=== PATIENT | female | born 1955 | race Caucasian/White ===

== ENCOUNTER 2023-12-02 09:38 | Outpatient (RCR) | payer OTHER, SELFPAY ==
[2023-12-02 10:07] VITALS: BP 120/80
[2023-12-02] MEDS: CORTROSYN 1 MG IV (10:47)
[2023-12-02 11:48] LABS: ACTH Stim Cortisol 0 Min 12.4 ug/dl
[2023-12-02 13:39] LABS: ACTH Stim Cortisol 30 Min 18.4 ug/dl
[2023-12-02 14:03] LABS: ACTH Stim Cortisol 60 Min 15.9 ug/dl
== END 2023-12-18 23:59 | disposition home or self-care (01) ==
LOC: OID 09:38
PROVIDERS: ATTENDING PHYSICIAN Nurse Practitioner Family; FAMILY PHYSICIAN Family Medicine Adult Medicine; OTHER PHYSICIAN Internal Medicine Rheumatology
DX: G62.9 Polyneuropathy, unspecified (principal); E06.3 Autoimmune thyroiditis (principal); M35.00 Sjogren syndrome, unspecified; R79.89 Other specified abnormal findings of blood chemistry; R63.5 Abnormal weight gain
CPT/HCPCS: 82533; 96374

== ENCOUNTER 2024-01-08 09:49 | Outpatient (RCR) | payer OTHER, SELFPAY ==
[2024-01-02] VITALS (7 sets, daily range): BP systolic 97–120; BP diastolic 61–80
[2024-01-02] MEDS: GAMMAGARD 50 IV (10:31)
[2024-01-02] MEDS: GAMMAGARD 200 IV (11:25)
[2024-01-03] VITALS (7 sets, daily range): BP systolic 88–138; BP diastolic 49–88
[2024-01-03] MEDS: GAMMAGARD 50 IV (08:45)
[2024-01-03] MEDS: GAMMAGARD 200 IV (09:30)
[2024-01-07] VITALS (7 sets, daily range): BP systolic 106–165; BP diastolic 67–82; BMI 29.6
[2024-01-07] MEDS: GAMMAGARD 50 IV (10:43)
[2024-01-07] MEDS: GAMMAGARD 200 IV (11:34)
[2024-01-08] VITALS (8 sets, daily range): BP systolic 96–118; BP diastolic 49–93
[2024-01-08] MEDS: GAMMAGARD 50 IV (10:29)
[2024-01-08] MEDS: GAMMAGARD 200 IV (11:13)
== END 2024-01-16 23:59 | disposition home or self-care (01) ==
LOC: OID 09:49
PROVIDERS: ATTENDING PHYSICIAN Internal Medicine Rheumatology; FAMILY PHYSICIAN Family Medicine Adult Medicine
DX: G62.9 Polyneuropathy, unspecified (principal); M35.00 Sjogren syndrome, unspecified
CPT/HCPCS: 96365; 96366; J1569

== ENCOUNTER 2024-02-07 10:35 | Outpatient (RCR) | payer OTHER, SELFPAY ==
[2024-02-04 11:05] VITALS: BP 98/71
[2024-02-04] MEDS: GAMMAGARD 50 IV (11:05)
[2024-02-04 11:30] VITALS: BP 104/60
[2024-02-04] MEDS: GAMMAGARD 200 IV (11:53)
[2024-02-04 12:00] VITALS: BP 104/66
[2024-02-04 12:30] VITALS: BP 104/70
[2024-02-04 13:00] VITALS: BP 98/71
[2024-02-05] VITALS (7 sets, daily range): BP systolic 105–121; BP diastolic 56–71
[2024-02-05] MEDS: GAMMAGARD 50 IV (10:56)
[2024-02-05] MEDS: GAMMAGARD 200 IV (11:41)
[2024-02-06] VITALS (7 sets, daily range): BP systolic 102–115; BP diastolic 63–69
[2024-02-06] MEDS: GAMMAGARD 50 IV (11:18)
[2024-02-06] MEDS: GAMMAGARD 200 IV (12:04)
[2024-02-07] VITALS (7 sets, daily range): BP systolic 104–127; BP diastolic 63–86
[2024-02-07] MEDS: GAMMAGARD 50 IV (11:07)
[2024-02-07] MEDS: GAMMAGARD 200 IV (11:57)
== END 2024-02-10 08:27 | disposition home or self-care (01) ==
LOC: OID 10:35
PROVIDERS: ATTENDING PHYSICIAN Internal Medicine Rheumatology; FAMILY PHYSICIAN Family Medicine Adult Medicine
DX: G62.9 Polyneuropathy, unspecified (principal); M35.00 Sjogren syndrome, unspecified
CPT/HCPCS: 96365; 96366; J1569

== ENCOUNTER 2024-03-06 10:38 | Outpatient (RCR) | payer OTHER, SELFPAY ==
[2024-03-03] VITALS (7 sets, daily range): BP systolic 91–114; BP diastolic 65–74
[2024-03-03] MEDS: GAMMAGARD 50 IV (11:10)
[2024-03-03] MEDS: GAMMAGARD 200 IV (11:59)
[2024-03-04 10:50] VITALS: BP 103/75
[2024-03-04] MEDS: GAMMAGARD 50 IV (11:03)
[2024-03-04 11:05] VITALS: BP 94/65
[2024-03-04 11:30] VITALS: BP 95/57
[2024-03-04] MEDS: GAMMAGARD 200 IV (11:54)
[2024-03-04 12:30] VITALS: BP 89/56
[2024-03-04 13:00] VITALS: BP 87/57
[2024-03-04 13:25] VITALS: BP 101/60
[2024-03-05] VITALS (7 sets, daily range): BP systolic 102–125; BP diastolic 56–76
[2024-03-05] MEDS: GAMMAGARD 50 IV (11:08)
[2024-03-05] MEDS: GAMMAGARD 200 IV (12:00)
[2024-03-06] VITALS (8 sets, daily range): BP systolic 87–119; BP diastolic 54–81
[2024-03-06] MEDS: GAMMAGARD 50 IV (10:54)
[2024-03-06] MEDS: GAMMAGARD 200 IV (11:42)
== END 2024-03-17 23:59 | disposition home or self-care (01) ==
LOC: OID 10:38
PROVIDERS: ATTENDING PHYSICIAN Internal Medicine Rheumatology; FAMILY PHYSICIAN Family Medicine Adult Medicine
DX: G62.9 Polyneuropathy, unspecified (principal); M35.00 Sjogren syndrome, unspecified
CPT/HCPCS: 96365; 96366; J1569

== ENCOUNTER 2024-04-03 10:45 | Outpatient (RCR) | payer OTHER, SELFPAY ==
[2024-03-31] VITALS (7 sets, daily range): BP systolic 101–125; BP diastolic 61–91
[2024-03-31] MEDS: GAMMAGARD 50 IV (11:12)
[2024-03-31] MEDS: GAMMAGARD 200 IV (12:03)
[2024-04-01] VITALS (7 sets, daily range): BP systolic 81–141; BP diastolic 66–77
[2024-04-01] MEDS: GAMMAGARD 50 IV (11:19)
[2024-04-01] MEDS: GAMMAGARD 200 IV (12:10)
[2024-04-02] VITALS (7 sets, daily range): BP systolic 102–116; BP diastolic 54–75
[2024-04-02] MEDS: GAMMAGARD 50 IV (11:07)
[2024-04-02] MEDS: GAMMAGARD 200 IV (11:56)
[2024-04-03] VITALS (7 sets, daily range): BP systolic 97–132; BP diastolic 64–87
[2024-04-03] MEDS: GAMMAGARD 50 IV (11:15)
[2024-04-03] MEDS: GAMMAGARD 200 IV (12:02)
== END 2024-04-17 23:59 | disposition home or self-care (01) ==
LOC: OID 10:45
PROVIDERS: ATTENDING PHYSICIAN Internal Medicine Rheumatology; FAMILY PHYSICIAN Family Medicine Adult Medicine
DX: G62.9 Polyneuropathy, unspecified (principal); M35.00 Sjogren syndrome, unspecified; M79.7 Fibromyalgia
CPT/HCPCS: 96365; 96366; J1569

== ENCOUNTER → 2024-04-30 17:19 | Outpatient (REF) | payer OTHER, SELFPAY | LOC: MRI 17:19 | PROVIDERS: ATTENDING PHYSICIAN Internal Medicine Endocrinology, Diabetes & Metabolism; FAMILY PHYSICIAN Family Medicine Adult Medicine | DX: E06.3 Autoimmune thyroiditis (principal); R79.89 Other specified abnormal findings of blood chemistry; R63.5 Abnormal weight gain; R73.9 Hyperglycemia, unspecified; E23.0 Hypopituitarism; Z86.39 Personal history of other endocrine, nutritional and metabolic disease | CPT/HCPCS: 70553; A9575 ==

== ENCOUNTER 2024-05-05 09:50 | Outpatient (RCR) | payer OTHER, SELFPAY ==
[2024-04-27] VITALS (7 sets, daily range): BP systolic 102–117; BP diastolic 73–84
[2024-04-27] MEDS: GAMMAGARD 50 IV (11:15)
[2024-04-27] MEDS: GAMMAGARD 200 IV (12:09)
[2024-05-01] VITALS (8 sets, daily range): BP systolic 105–114; BP diastolic 69–78
[2024-05-01] MEDS: GAMMAGARD 50 IV (11:16)
[2024-05-01] MEDS: GAMMAGARD 200 IV (12:12)
[2024-05-04] VITALS (7 sets, daily range): BP systolic 102–129; BP diastolic 69–83
[2024-05-04] MEDS: GAMMAGARD 50 IV (11:05)
[2024-05-04] MEDS: GAMMAGARD 200 IV (11:53)
[2024-05-05] VITALS (7 sets, daily range): BP systolic 98–127; BP diastolic 67–80
[2024-05-05] MEDS: GAMMAGARD 50 IV (10:08)
[2024-05-05] MEDS: GAMMAGARD 200 IV (10:56)
== END 2024-05-06 08:35 | disposition home or self-care (01) ==
LOC: OID 09:50
PROVIDERS: ATTENDING PHYSICIAN Internal Medicine Rheumatology; FAMILY PHYSICIAN Family Medicine Adult Medicine
DX: G62.9 Polyneuropathy, unspecified (principal); M35.00 Sjogren syndrome, unspecified; M79.7 Fibromyalgia
CPT/HCPCS: 96365; 96366; J1569

== ENCOUNTER 2024-06-04 10:46 | Outpatient (RCR) | payer OTHER, SELFPAY ==
[2024-06-01] VITALS (7 sets, daily range): BP systolic 96–115; BP diastolic 66–79
[2024-06-01] MEDS: GAMMAGARD 50 IV (11:10)
[2024-06-01] MEDS: GAMMAGARD 200 IV (11:55)
[2024-06-02 10:59] VITALS: BP 104/71
[2024-06-02] MEDS: GAMMAGARD 50 IV (10:59)
[2024-06-02 11:08] VITALS: BP 112/81
[2024-06-02 11:30] VITALS: BP 112/81
[2024-06-02] MEDS: GAMMAGARD 200 IV (11:46)
[2024-06-02 12:00] VITALS: BP 106/68
[2024-06-02 12:30] VITALS: BP 101/60
[2024-06-02 13:20] VITALS: BP 123/82
[2024-06-03] VITALS (7 sets, daily range): BP systolic 106–118; BP diastolic 47–81
[2024-06-03] MEDS: GAMMAGARD 50 IV (10:59)
[2024-06-03] MEDS: GAMMAGARD 200 IV (11:44)
[2024-06-04] VITALS (7 sets, daily range): BP systolic 121–137; BP diastolic 70–91
[2024-06-04] MEDS: GAMMAGARD 50 IV (11:23)
[2024-06-04] MEDS: GAMMAGARD 200 IV (12:15)
== END 2024-06-05 08:30 | disposition home or self-care (01) ==
LOC: OID 10:46
PROVIDERS: ATTENDING PHYSICIAN Internal Medicine Rheumatology; FAMILY PHYSICIAN Family Medicine Adult Medicine
DX: G62.9 Polyneuropathy, unspecified (principal); M35.00 Sjogren syndrome, unspecified; M79.7 Fibromyalgia
CPT/HCPCS: 96365; 96366; J1569

== ENCOUNTER 2024-07-09 10:01 | Outpatient (RCR) | payer OTHER, SELFPAY ==
[2024-07-06 10:12] VITALS: BP 94/70
[2024-07-06] MEDS: GAMMAGARD 50 IV (10:12)
[2024-07-06 10:30] VITALS: BP 102/66
[2024-07-06 10:33] VITALS: BP 117/70
[2024-07-06] MEDS: GAMMAGARD 200 IV (10:58)
[2024-07-06 11:00] VITALS: BP 99/57
[2024-07-06 11:30] VITALS: BP 105/63
[2024-07-06 12:00] VITALS: BP 117/75
[2024-07-07] VITALS (7 sets, daily range): BP systolic 103–121; BP diastolic 67–80
[2024-07-07] MEDS: GAMMAGARD 50 IV (10:35)
[2024-07-07] MEDS: GAMMAGARD 200 IV (11:26)
[2024-07-07] MEDS: TYLENOL 1000 MG PO (11:52)
[2024-07-08] VITALS (7 sets, daily range): BP systolic 106–127; BP diastolic 69–84
[2024-07-08] MEDS: GAMMAGARD 50 IV (10:24)
[2024-07-08] MEDS: GAMMAGARD 200 IV (11:19)
[2024-07-09] MEDS: GAMMAGARD 50 IV (10:20)
[2024-07-09 10:26] VITALS: BP 137/81
[2024-07-09 10:50] VITALS: BP 123/77
[2024-07-09] MEDS: GAMMAGARD 200 IV (11:04)
[2024-07-09 11:20] VITALS: BP 104/63
[2024-07-09 11:50] VITALS: BP 114/73
[2024-07-09 12:20] VITALS: BP 107/66
== END 2024-07-10 08:28 | disposition home or self-care (01) ==
LOC: OID 10:01
PROVIDERS: ATTENDING PHYSICIAN Internal Medicine Rheumatology; FAMILY PHYSICIAN Family Medicine Adult Medicine
DX: M35.00 Sjogren syndrome, unspecified (principal); G62.9 Polyneuropathy, unspecified; M79.7 Fibromyalgia; M81.0 Age-related osteoporosis without current pathological fracture; E27.2 Addisonian crisis
CPT/HCPCS: 96365; 96366; 96374; J1569